=== PATIENT | female | born 2000 | race American Indian/Alaskan Native ===

== ENCOUNTER 2022-03-10 20:48 | Emergency (ER) | payer SELFPAY | END 2022-03-12 09:12 | disposition left against medical advice (07) | LOC: ED 20:48 | DX: R11.0 Nausea (principal); Z53.21 Procedure and treatment not carried out due to patient leaving prior to being seen by health care provider ==

== ENCOUNTER 2022-03-12 00:44 | Emergency (ER) | payer SELFPAY ==
[2022-03-12 03:12] LABS: Mucus,Urine 2+ /HPF
[2022-03-12 03:14] LABS: Basophils % (Auto) 0.4 % (0.0-1.8); Eosinophils # (Auto) 0.1 K/mm3 (0.0-0.4); Eosinophils % (Auto) 0.9 % (0.0-4.3); Hematocrit 35.7 % (30.3-42.9); Hemoglobin 11.7 gm/dl (10.1-14.3); Lymphocytes # (Auto) 2.7 K/mm3 (1.2-5.4); Lymphocytes % (Auto) 34.8 % (13.4-35.0); Mean Corpuscular HGB Conc 33 % (30-34); Mean Corpuscular Volume 79 fl (79-97); Monocytes # (Auto) 0.5 K/mm3 (0.0-0.8); Monocytes % (Auto) 6.7 % (0.0-7.3); Platelet Count 332 K/mm3 (140-440); Red Cell Distribution Width 14.9 % (13.2-15.2)
[2022-03-12 03:22] LABS: Bilirubin,Urine Negative (Negative); Blood,Urine Negative (Negative); Color,Urine Yellow (Yellow); Protein,Urine <15 mg/dL mg/dL (Negative); Urobilinogen,Urine < 2.0 mg/dL (<2.0)
[2022-03-12 03:37] LABS: Alanine Aminotransferase 11 units/L (7-56); Albumin 4.7 g/dL (3.9-5); BUN/Creatinine Ratio 11; Blood Urea Nitrogen 10 mg/dL (7-17); Calcium 9.9 mg/dL (8.4-10.2); Hemolysis Index 6
--- NOTE | 2022-03-12 09:51 | Ultrasound Report ---
US OB <= 14 WEEKS FETUS US OB TRANSVAGINAL INDICATION / CLINICAL INFORMATION: abdominal pain, + preg tests. COMPARISON: None available. FINDINGS: Uterus measures 7.4 cm in length. The endometrial echo complex measures 10 mm. No intrauterine gestat ional sac/endometrial fluid collection is seen. No uterine lesions are identified. Left ovary is unremarkable. In the right ovary there is a complex cystic lesion which measures 2.2 cm. Small amount of free fluid is noted in the pelvis. IMPRESSION: 1. There is no sonographic evidence of intrauterine . I would not expect to see an intrauter ine with a very low serum hCG level of 62 (included on the technologist worksheet). There a ppears to be in early corpus luteal cyst within the right ovary measuring 2.2 cm. However, the sonogr apher describes this as adnexal and not ovarian. Correlation with serial beta hCG levels and short-te sonographic follow-up is recommended. Signer Name: Florin Bautista MD Signed: 03/12/2022 9:46 AM Workstation Name: [id number]
--- NOTE | 2022-03-12 10:01 | Emergency Department Report ---
ED Abdominal Pain HPI - General Chief Complaint: Abdominal Pain Stated Complaint: STOMACH PAINS Time Seen by Provider: 03/12/22 07:32 Source: patient Mode of arrival: Ambulatory Limitations: No Limitations - History of Present Illness Initial Comments: 21-year-old black female with no past medical history presents to the emergency department for evaluation of 2-day history of intermittent abdominal pain. She denies fever, nausea, vomiting, diarrhea, and vaginal discharge. MD Complaint: abdominal pain -: Gradual, days(s) (2) Location: diffuse Radiation: none Migration to: no migration Severity: mild Severity scale (0 -10): 3 Quality: aching Consistency: intermittent Associated Symptoms: denies: nausea, vomiting, diarrhea, fever, chills, dysuria, hematemesis, hematochezia, melena, hematuria, anorexia, syncope - Related Data LMP (females 10-50): 1 month Allergies Allergy/AdvReac Type Severity Reaction Status Date / Time No Known Allergies Allergy Verified 03/12/22 02:04 ED Review of Systems ROS: Stated complaint: STOMACH PAINS Other details as noted in HPI Comment: All other systems reviewed and negative Constitutional: denies: chills, fever ENT: denies: congestion Respiratory: denies: cough, orthopnea, shortness of breath, SOB with exertion, SOB at rest, stridor, wheezing Cardiovascular: denies: chest pain, palpitations Gastrointestinal: abdominal pain. denies: nausea, vomiting, diarrhea, hematemesis, melena, hematochezia Genitourinary: denies: urgency, dysuria, frequency, hematuria, discharge Musculoskeletal: denies: back pain Skin: denies: rash, lesions Neurological: denies: headache, weakness ED Physical Exam - General Limitations: No Limitations General appearance: alert, in no apparent distress - Head Head exam: Present: atraumatic, normocephalic - Eye Eye exam: Present: normal appearance. Absent: conjunctival injection, periorbital swelling, periorbital tenderness - Neck Neck exam: Present: normal inspection, tenderness, full ROM. Absent: lymphadenopathy - Respiratory Respiratory exam: Present: normal lung sounds bilaterally. Absent: respiratory distress, wheezes, rales, rhonchi, stridor, chest wall tenderness - Cardiovascular Cardiovascular Exam: Present: regular rate, normal heart sounds - GI/Abdominal GI/Abdominal exam: Present: soft, normal bowel sounds. Absent: distended, tenderness, guarding, rebound, rigid - Extremities Exam Extremities exam: Present: normal inspection, normal capillary refill. Absent: pedal edema, joint swelling, calf tenderness - Back Exam Back exam: Present: normal inspection. Absent: CVA tenderness (R), CVA tenderness (L), vertebral tenderness - Neurological Exam Neurological exam: Present: alert, oriented X3, normal gait - Psychiatric Psychiatric exam: Present: normal affect, normal mood - Skin Skin exam: Present: warm, dry, intact, normal color ED Course Vital Signs 03/12/22 03/12/22 01:53 10:36 Temperature 97.7 F 98.7 F Pulse Rate 97 H 78 Respiratory 18 14 Rate Blood Pressure 119/72 Blood Pressure 136/78 [Left] O2 Sat by Pulse 100 98 Oximetry ED Medical Decision Making - Lab Data Result diagrams: 03/12/22 02:36 03/12/22 02:36 - Radiology Data Radiology results: report reviewed, image reviewed ultrasound: FINDINGS: Uterus measures 7.4 cm in length. The endometrial echo complex measures 10 mm. No intrauterine gestational sac/endometrial fluid collection is seen. No uterine lesions are identified. Left ovary is unremarkable. In the right ovary there is a complex cystic lesion which measures 2.2 cm. Small amount of free fluid is noted in the pelvis. IMPRESSION: 1. There is no sonographic evidence of intrauterine . I would not expect to see an intrauterine with a very low serum hCG level of 62 (included on the technologist worksheet). There appears to be in early corpus luteal cyst within the right ovary measuring 2.2 cm. However, the senior partner describes this as adnexal and not ovarian. Correlation with serial beta hCG levels and short-term sonographic follow-up is recommended. - Medical Decision Making 21-year-old black female with no past medical history presents to the emergency department for evaluation of 2-day history of intermittent abdominal pain. She denies fever, nausea, vomiting, diarrhea, and vaginal discharge. Physical exam unremarkable. Mildly elevated hCG level, and ultrasound that shows no IUP. Patient in no acute distress and denies pain at this time. With HCG of less than 100, it is not unusual to not see an IUP. Patient is advised of results and instructed to follow-up in 2 to 3 days for repeat hCG evaluation and possible ultrasound. She is advised to return to the emergency department immediately if she develops severe abdominal pain, vaginal bleeding, dizziness, weakness, shortness of breath. She verbalizes understanding of and agreement with plan of care. Critical care attestation.: If time is entered above; I have spent that time in minutes in the direct care of this critically ill patient, excluding procedure time. ED Disposition Clinical Impression: Abdominal pain during in first trimester Disposition: HOME / SELF CARE / HOMELESS Is pt being admited?: No Does the pt Need Aspirin: No Condition: Stable Instructions: Abdominal Pain During , [id number], Abdominal Pain (ED) Additional Instructions: No noticed on ultrasound, but it is too early to be able to see on ultrasound. You need to follow-up with your CAREER SERVICES ASSISTANT in 2 to 3 days to have repeat blood test and reevaluation. Return to the emergency department immediately for severe abdominal pain, fever, or any concerning symptoms. Referrals: [facility] [Provider Group] - 3-5 Days [facility] [Provider Group] - 3-5 Days [facility] [Provider Group] - 3-5 Days [facility] [Provider Group] - 3-5 Days Forms: Work/School Release Form(ED) Time of Disposition: 10:00
[2022-03-12 10:38] VITALS: BP 136/78
== END 2022-03-12 10:38 | disposition home or self-care (01) ==
LOC: ED 00:44
DX: O26.891 Other specified pregnancy related conditions, first trimester (principal); R10.9 Unspecified abdominal pain; Z3A.01 Less than 8 weeks gestation of pregnancy
CPT/HCPCS: 36415; 76801; 76817; 80053; 81001; 84702; 85025; 99284